=== PATIENT | female | born 1975 | race African-American/Black ===

== ENCOUNTER 2016-12-15 15:02 | Emergency (ER) | payer MEDICARE ==
[2016-12-15 16:08] LABS: BASOPHILS 0 % (0.0-2.0); EOSINOPHILS 0.3 % (0-7); HEMATOCRIT 35.9 % (36.0-48.0); HEMOGLOBIN 11.5 g/dL (12-16); IMMATURE GRANULOCYTES 0.4 % (0-5); LYMPHOCYTES 11.1 % (15-50); MCH 28.3 pg (26.0-34.0); MCV 88.2 fL (80.0-100.0); MEAN PLATELET VOLUME 9.6 fL (7.4-10.4); MONOCYTES 8.1 % (2-11); NEUTROPHILS 80.1 % (40-80); PLATELET COUNT 257 10x3/uL (130-400); RBC 4.07 10x6/uL (4.00-5.40); WBC 7.7 10x3/uL (4.8-10.8)
[2016-12-15 16:17] LABS: ALBUMIN 3.8 g/dL (3.4-5.0); ALKALINE PHOSPHATASE 67 U/L (46-116); ALT (SGPT) 33 U/L (10-68); AMYLASE - SERUM 76 U/L (25-115); BILIRUBIN - TOTAL 0.31 mg/dL (0.2-1.3); CALC OSMOLALITY 276 mosm/kg (275-300); CALCIUM 9.1 mg/dL (8.5-10.1); CARBON DIOXIDE 23.6 mmol/L (21.0-32.0); CHLORIDE - SERUM 101 mmol/L (98-107); CREATININE - SERUM 0.6 mg/dL (0.6-1.3); GLUCOSE 126 mg/dL (74-106); LIPASE 73 U/L (73-393); POTASSIUM - SERUM 3.9 mmol/L (3.5-5.1); PROTEIN - SERUM 8.1 g/dL (6.4-8.2); SODIUM 138 mmol/L (136-145); UREA NITROGEN 11 mg/dL (7-18); eGFR NON AFRICAN AMERICAN > 90 mL/min (90-120)
[2016-12-15 17:18] LABS: APPEARANCE CLEAR (CLEAR); BILIRUBIN NEGATIVE (NEGATIVE); COLOR YELLOW (YELLOW); GLUCOSE NEGATIVE (NEGATIVE); KETONE MODERATE mg/dL (NEGATIVE); LEUKOCYTE ESTERASE TRACE (NEGATIVE); NITRITE NEGATIVE (NEGATIVE); PROTEIN TRACE mg/dL (NEGATIVE); UROBILINOGEN NORMAL (NORMAL)
[2016-12-15 17:19] LABS: BACTERIA MODERATE /hpf (NONE SEEN); RED CELLS - URINE 0-5 /hpf (0-5); WHITE CELLS - URINE 0-5 /hpf (0-5)
== END 2016-12-15 18:31 | disposition home or self-care (01) ==
LOC: D.ER 15:02
PROVIDERS: Emergency Medicine
DX: K29.00 Acute gastritis without bleeding (principal)

== ENCOUNTER 2017-02-20 12:05 | Emergency (ER) | payer MEDICARE ==
[2017-02-20 16:37] LABS: APPEARANCE CLEAR (CLEAR); BILIRUBIN NEGATIVE (NEGATIVE); COLOR DK YELLOW (YELLOW); GLUCOSE NEGATIVE (NEGATIVE); KETONE MODERATE mg/dL (NEGATIVE); LEUKOCYTE ESTERASE NEGATIVE (NEGATIVE); NITRITE NEGATIVE (NEGATIVE); PROTEIN NEGATIVE (NEGATIVE); SPECIFIC GRAVITY 1.015 (1.005-1.020); UROBILINOGEN NORMAL (NORMAL)
[2017-02-20 17:44] LABS: BASOPHILS 0.2 % (0.0-2.0); EOSINOPHILS 0.5 % (0-7); HEMATOCRIT 36.6 % (36.0-48.0); HEMOGLOBIN 11.9 g/dL (12-16); MCH 26.6 pg (26.0-34.0); MCHC 32.5 g/dL (31.0-37.0); MCV 81.9 fL (80.0-100.0); MONOCYTES 5.1 % (2-11); NEUTROPHILS 62.2 % (40-80); PLATELET COUNT 245 10x3/uL (130-400); RBC 4.47 10x6/uL (4.00-5.40); RDW 15.8 % (11.5-14.5); WBC 4.3 10x3/uL (4.8-10.8)
[2017-02-20 17:47] LABS: ALBUMIN 2.8 g/dL (3.4-5.0); ALKALINE PHOSPHATASE 90 U/L (46-116); ALT (SGPT) 98 U/L (10-68); BILIRUBIN - TOTAL 0.44 mg/dL (0.2-1.3); CALC OSMOLALITY 277 mosm/kg (275-300); CALCIUM 7.6 mg/dL (8.5-10.1); CARBON DIOXIDE 25.7 mmol/L (21.0-32.0); CHLORIDE - SERUM 108 mmol/L (98-107); CREATININE - SERUM 0.5 mg/dL (0.6-1.3); GLUCOSE 93 mg/dL (74-106); POTASSIUM - SERUM 3.5 mmol/L (3.5-5.1); PROTEIN - SERUM 6.2 g/dL (6.4-8.2); SODIUM 141 mmol/L (136-145); UREA NITROGEN 5 mg/dL (7-18); eGFR NON AFRICAN AMERICAN > 90 mL/min (90-120)
[2017-02-20 17:51] LABS: THYROID STIMULATING HORMONE 0.79 uIU/mL (0.36-3.74)
== END 2017-02-20 18:14 | disposition home or self-care (01) ==
LOC: D.ER 12:05
PROVIDERS: Emergency Medicine
DX: E86.0 Dehydration (principal); I95.9 Hypotension, unspecified; R53.1 Weakness; F17.200 Nicotine dependence, unspecified, uncomplicated; R00.1 Bradycardia, unspecified

== ENCOUNTER 2017-03-07 12:13 | Emergency (ER) | payer MEDICARE ==
[2017-03-07 14:06] LABS: APPEARANCE TURBID (CLEAR); COLOR RED (YELLOW); GLUCOSE NEGATIVE (NEGATIVE); KETONE NEGATIVE (NEGATIVE); LEUKOCYTE ESTERASE 2+ (NEGATIVE); NITRITE NEGATIVE (NEGATIVE); PROTEIN 3+ mg/dL (NEGATIVE); SPECIFIC GRAVITY 1.005 (1.005-1.020); UROBILINOGEN NORMAL (NORMAL)
[2017-03-07 14:07] LABS: BACTERIA FEW /hpf (NONE SEEN); BILIRUBIN NEGATIVE (NEGATIVE); EPITHELIAL CELLS OCC /hpf (0-5); MUCUS <1+ /lpf (NONE SEEN); RED CELLS - URINE >50 /hpf (0-5); WHITE CELLS - URINE 0-5 /hpf (0-5)
[2017-03-07 15:29] LABS: BASOPHILS 0.2 % (0.0-2.0); EOSINOPHILS 0 % (0-7); HEMATOCRIT 33.8 % (36.0-48.0); HEMOGLOBIN 11.2 g/dL (12-16); IMMATURE GRANULOCYTES 0.5 % (0-5); LYMPHOCYTES 14.9 % (15-50); MCH 27.1 pg (26.0-34.0); MCHC 33.1 g/dL (31.0-37.0); MCV 81.8 fL (80.0-100.0); MONOCYTES 6.1 % (2-11); NEUTROPHILS 78.3 % (40-80); RBC 4.13 10x6/uL (4.00-5.40); RDW 17.8 % (11.5-14.5); WBC 5.7 10x3/uL (4.8-10.8)
[2017-03-07 15:31] LABS: PLATELET COUNT 496 10x3/uL (130-400)
[2017-03-07 15:50] LABS: ALBUMIN 3.1 g/dL (3.4-5.0); ALKALINE PHOSPHATASE 129 U/L (46-116); ALT (SGPT) 101 U/L (10-68); BILIRUBIN - TOTAL 0.38 mg/dL (0.2-1.3); CALC OSMOLALITY 279 mosm/kg (275-300); CALCIUM 8.4 mg/dL (8.5-10.1); CARBON DIOXIDE 23.6 mmol/L (21.0-32.0); CHLORIDE - SERUM 105 mmol/L (98-107); CREATININE - SERUM 0.6 mg/dL (0.6-1.3); GLUCOSE 125 mg/dL (74-106); PROTEIN - SERUM 6.8 g/dL (6.4-8.2); SODIUM 141 mmol/L (136-145); UREA NITROGEN 8 mg/dL (7-18); eGFR NON AFRICAN AMERICAN > 90 mL/min (90-120)
== END 2017-03-07 16:54 | disposition home or self-care (01) ==
LOC: D.ER 12:13
PROVIDERS: Emergency Medicine
DX: N39.0 Urinary tract infection, site not specified (principal); M54.5 Low back pain; I95.9 Hypotension, unspecified; F17.200 Nicotine dependence, unspecified, uncomplicated

== ENCOUNTER 2017-03-10 08:05 | Emergency (ER) | payer MEDICARE ==
--- NOTE | ~2017-03-10 | PN ---
PATIENT:LISSETTE GONZALES MEDICAL RECORD: [id number] LOCATION:D.ER ADMISSION DATE: 03/10/17 PROGRESS NOTE DATE OF SERVICE: 03/10/2017 SUBJECTIVE: I was asked to see Ms. Gonzales in consultation. She is being admitted by Dr. Padron. I have discussed this case with Dr. Castro. I have personally reviewed the CT as well as the barium enema images. The patient has an intussusception. Almost all of her large bowel was intussusception as well as some of her small bowel. 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 Perhaps to the enteroenterostomy is the lead point for this intussusception. The patient would like to go [place] to have any type of operative intervention, which I think is going to be necessary in the very near future. She wants to see Dr. Arvizu, bariatric surgeon in [place]. I have discussed this with Dr. Biggs, who is going to try to effect a transfer to [place] for the patient to see Dr. Arvizu. TRANSINT:[id number] Voice Confirmation ID: [id number] DOCUMENT ID: [id number] TRAM SALAS MD CC: [id number] DICTATION DATE: 03/10/17 1437 PROFESSIONAL SOCCER PLAYER: 03/11/17 0304 [facility] ER 03/10/17 [id number] [place] [address]
[2017-03-10 08:47] LABS: APPEARANCE HAZY (CLEAR); BACTERIA MODERATE /hpf (NONE SEEN); BILIRUBIN NEGATIVE (NEGATIVE); COLOR DK YELLOW (YELLOW); GLUCOSE NEGATIVE (NEGATIVE); KETONE MODERATE mg/dL (NEGATIVE); LEUKOCYTE ESTERASE TRACE (NEGATIVE); MUCUS >1+ /lpf (NONE SEEN); NITRITE NEGATIVE (NEGATIVE); PROTEIN TRACE mg/dL (NEGATIVE); RED CELLS - URINE RARE /hpf (0-5); UROBILINOGEN NORMAL (NORMAL); WHITE CELLS - URINE 0-5 /hpf (0-5)
[2017-03-10 08:50] LABS: AMORPHOUS SEDIMENT <1+ /lpf (NONE SEEN)
[2017-03-10 09:19] LABS: BASOPHILS 0 % (0.0-2.0); EOSINOPHILS 0.3 % (0-7); HEMOGLOBIN 11.2 g/dL (12-16); IMMATURE GRANULOCYTES 0.4 % (0-5); LYMPHOCYTES 8.8 % (15-50); MCH 26.9 pg (26.0-34.0); MCHC 32.9 g/dL (31.0-37.0); MCV 81.7 fL (80.0-100.0); MEAN PLATELET VOLUME 8.7 fL (7.4-10.4); MONOCYTES 7.4 % (2-11); NEUTROPHILS 83.1 % (40-80); PLATELET COUNT 429 10x3/uL (130-400); RBC 4.16 10x6/uL (4.00-5.40); RDW 18.2 % (11.5-14.5); WBC 9.5 10x3/uL (4.8-10.8)
[2017-03-10 09:56] LABS: ALBUMIN 2.4 g/dL (3.4-5.0); ALKALINE PHOSPHATASE 130 U/L (46-116); ALT (SGPT) 66 U/L (10-68); BILIRUBIN - TOTAL 0.55 mg/dL (0.2-1.3); CALC OSMOLALITY 277 mosm/kg (275-300); CALCIUM 7.9 mg/dL (8.5-10.1); CARBON DIOXIDE 30.3 mmol/L (21.0-32.0); CHLORIDE - SERUM 104 mmol/L (98-107); CREATININE - SERUM 0.6 mg/dL (0.6-1.3); GLUCOSE 120 mg/dL (74-106); PROTEIN - SERUM 6.2 g/dL (6.4-8.2); SODIUM 140 mmol/L (136-145); UREA NITROGEN 8 mg/dL (7-18); eGFR NON AFRICAN AMERICAN > 90 mL/min (90-120)
[2017-03-10 09:58] LABS: POTASSIUM - SERUM 2.9 mmol/L (3.5-5.1)
== END 2017-03-10 17:10 | disposition other institution (70) ==
LOC: D.ER 08:05
PROVIDERS: Family Medicine
DX: R10.9 Unspecified abdominal pain (principal); I95.9 Hypotension, unspecified

== ENCOUNTER 2017-08-28 20:00 | Observation (INO) | payer MEDICARE ==
[~2017-08-28] VITALS: Ht 167.6 cm; Wt 52.2 kg
[2017-08-28 20:57] LABS: BASOPHILS 0.2 % (0-2); EOSINOPHILS 0.2 % (0-7); HEMATOCRIT 26.5 % (36.0-48.0); HEMOGLOBIN 8.4 g/dL (12-16); IMMATURE GRANULOCYTES 0.2 % (0-5); LYMPHOCYTES 17.7 % (15-50); MCH 31.8 pg (26.0-34.0); MCHC 31.7 g/dL (31.0-37.0); MCV 100.4 fL (80.0-100.0); MONOCYTES 6.9 % (2-11); NEUTROPHILS 74.8 % (40-80); PLATELET COUNT 303 10x3/uL (130-400); RBC 2.64 10x6/uL (4.00-5.40); RDW 14.3 % (11.5-14.5); WBC 4.8 10x3/uL (4.8-10.8)
[2017-08-28 21:05] LABS: CALC OSMOLALITY 274 mosm/kg (275-300); CALCIUM 8.2 mg/dL (8.5-10.1); CARBON DIOXIDE 28.4 mmol/L (21.0-32.0); CHLORIDE - SERUM 106 mmol/L (98-107); CREATININE - SERUM 0.4 mg/dL (0.6-1.3); GLUCOSE 78 mg/dL (74-106); POTASSIUM - SERUM 3.8 mmol/L (3.5-5.1); SODIUM 138 mmol/L (136-145); UREA NITROGEN 13 mg/dL (7-18); eGFR NON AFRICAN AMERICAN > 90 mL/min (90-120)
[2017-08-29] MEDS ORDERED: LYRICA50 MG PO (02:08)
[2017-08-29] MEDS ORDERED: AMBIEN10 MG PO (02:10)
[2017-08-29] MEDS ORDERED: NORCO 7.5/325 T1 TA1 PO (02:11)
[2017-08-29 03:01] VITALS: BP 107/59; BMI 18.6
--- NOTE | 2017-08-29 03:14 | NUR ---
RECEIVED PT TO FLOOR FROM ER VIA WHEELCHAIR. PT AMBULATORY. VITAL SIGNS STABLE. SMALL AMOUNT YELLOW FLUID DRAINING FROM PEG TUBE SITE. PEG TUBE IS CLAMPED. ASSESSMENT COMPELTE PER FLOW-SHEET. REVIEWED HOME MEDS. PT UNABLE TO RECALL ALL MEDS. DAUGHTER TO BRING LIST LATE. REVIEWED HISTORY. PLACED SCD'S ON. PT C/O ABDOMINAL PAIN 07/08. WROTE TIME FOR NEXT PAIN MED ON BOARD. PLACED WARM BLANKET ON PT. PT IS NPO. NO OTHER NEEDS. WILL CONTINUE TO MONITOR.
[2017-08-29 04:00] VITALS: BP 102/56
--- NOTE | 2017-08-29 06:55 | NUR ---
REPORT RECIEVED, ASSUMED CARE OF PT. RESTING IN BED, EASILY AROUSED. R HAND IV INFUSING FLUIDS ORDERED, DRSG C/D/I. NO NEEDS VOICED, BED IN LOWEST POSITION, SIDE RAILS UP X 2, CALL LIGHT WITHIN REACH.
[2017-08-29 09:20] VITALS: BP 101/62
[2017-08-29 12:31] VITALS: BP 110/74
[2017-08-29 14:19] LABS: BILIRUBIN - DIRECT 0.17 mg/dL (0.00-0.30); BILIRUBIN - INDIRECT 0.06 mg/dL (0.00-1.00); BILIRUBIN - TOTAL 0.23 mg/dL (0.2-1.3); PRE-ALBUMIN 9.2 mg/dL (18.0-35.7); PROTEIN - SERUM 5.2 g/dL (6.4-8.2)
[2017-08-29 16:05] VITALS: BP 108/75
[2017-08-29 21:27] VITALS: BP 99/62
--- NOTE | 2017-08-29 21:28 | NUR ---
REC'D LYING IN BED. ALERT AND ORIENTED X4. REPORTED PAIN 8/10. WILL ADMIN PAIN MEDS PRESCRIBED. INSTRUCTED TO CALL IF NEEDED ANYTHING, VERBLAIZED UNDERSTANDING. NO DISTRESS NOTED. IS WANTING SOME 4X4S FOR ABDOMEN. BED LOW, LOCKED, CALL LIGHT IN REACH. WILL CONT TO MONITOR.
[2017-08-30] VITALS: BP 103/67
[2017-08-30 04:00] VITALS: BP 119/80
--- NOTE | 2017-08-30 04:40 | NUR ---
PT SITTING IN BED WATCHING TV. JUST RECEIVED PAIN MEDS. NO OTHER NEEDS. CONTINUE FINANCE SPECIALIST'S PLAN OF CARE.
[2017-08-30 05:44] LABS: BASOPHILS 0.3 % (0-2); EOSINOPHILS 0.7 % (0-7); HEMOGLOBIN 9.3 g/dL (12-16); LYMPHOCYTES 36.6 % (15-50); MCH 31.7 pg (26.0-34.0); MCHC 32.1 g/dL (31.0-37.0); MEAN PLATELET VOLUME 9.6 fL (7.4-10.4); MONOCYTES 7.2 % (2-11); NEUTROPHILS 55.2 % (40-80); PLATELET COUNT 308 10x3/uL (130-400); RBC 2.93 10x6/uL (4.00-5.40); RDW 14.5 % (11.5-14.5)
[2017-08-30 05:49] LABS: WBC 2.9 10x3/uL (4.8-10.8)
[2017-08-30 05:58] LABS: ALBUMIN 2.3 g/dL (3.4-5.0); ALKALINE PHOSPHATASE 138 U/L (46-116); ALT (SGPT) 106 U/L (10-68); CALCIUM 8.2 mg/dL (8.5-10.1); CARBON DIOXIDE 24.1 mmol/L (21.0-32.0); CHLORIDE - SERUM 109 mmol/L (98-107); CREATININE - SERUM 0.5 mg/dL (0.6-1.3); INR 1.19 (0.85-1.17); POTASSIUM - SERUM 3.4 mmol/L (3.5-5.1); PROTEIN - SERUM 6.4 g/dL (6.4-8.2); SODIUM 140 mmol/L (136-145); eGFR NON AFRICAN AMERICAN > 90 mL/min (90-120)
[2017-08-30 06:03] LABS: CALC OSMOLALITY 275 mosm/kg (275-300); GLUCOSE 61 mg/dL (74-106); UREA NITROGEN 9 mg/dL (7-18)
--- NOTE | 2017-08-30 07:45 | NUR ---
PT AOX4 RESP EVEN AND NONLABORED PT DENIES NEEDS AT THIS TIME IV TO RIGHT HAND PATENT AND INTACT AT THIS TIME SRX2 BED AT LOWEST SETTING CALL LIGHT WITHIN REACH WILL CONTINUE TO MONITOR
[2017-08-30 08:35] VITALS: BP 105/63
[2017-08-30 12:29] VITALS: BP 106/68
[2017-08-30 15:18] VITALS: Ht 167.6 cm; Wt 52.2 kg
[2017-08-30 20:00] VITALS: BP 108/70
--- NOTE | 2017-08-30 22:29 | NUR ---
PATIENT REQUESTED HER PEG TUBE DRESSING BE CHANGED. REMOVED THE DRESSING. THERE IS LIGHT YELLOW DRAINAGE, A THIN LAYER ON THE PEG TUBE WHERE IT ENTERS THE ABDOMEN. THE PEG TUBE IS NOT STITCHED IN, THERE IS THREAD AROUND THE TUBE, ABOUT 6CM AWAY FROM WHERE THE PEG TUBE ENTERS THE ABDOMEN. PATIENT STATED "THE ER DOCTOR LOOKED AT IT AND HE SAID IT WAS IN THERE. I WENT TO A GI DOCTOR AT HIS CLINIC AND HE LOOKED AT IT AND PULLED IT OUT LIKE THAT AND HE SAID IT WAS IN. BUT IT IS VERY TENDER UNDER THERE. I DO NOT THINK IT IS IN." ENCOURAGED PATIENT TO SHOW THE DOCTOR WHEN SHE SEES THE DOCTOR TOMORROW.
[2017-08-30 22:40] LABS: MACROPHAGES BF 5 %; NEUT - BF 90 %
[2017-08-31] VITALS: BP 98/69
--- NOTE | 2017-08-31 02:31 | NUR ---
PATIENT RATED HER PAIN 'BETTER' RATED A 7/10.
[2017-08-31 05:39] VITALS: BP 100/66
[2017-08-31 06:27] LABS: BASOPHILS 0.3 % (0-2); HEMATOCRIT 23.6 % (36.0-48.0); HEMOGLOBIN 7.6 g/dL (12-16); LYMPHOCYTES 28.2 % (15-50); MCH 31.7 pg (26.0-34.0); MCHC 32.2 g/dL (31.0-37.0); MCV 98.3 fL (80.0-100.0); MEAN PLATELET VOLUME 8.8 fL (7.4-10.4); MONOCYTES 9.8 % (2-11); NEUTROPHILS 60.7 % (40-80); PLATELET COUNT 250 10x3/uL (130-400); RDW 14.3 % (11.5-14.5); WBC 3.1 10x3/uL (4.8-10.8)
[2017-08-31 06:57] LABS: ALKALINE PHOSPHATASE 127 U/L (46-116); ALT (SGPT) 107 U/L (10-68); BILIRUBIN - TOTAL 0.17 mg/dL (0.2-1.3); CALCIUM 7.4 mg/dL (8.5-10.1); CARBON DIOXIDE 23.3 mmol/L (21.0-32.0); CHLORIDE - SERUM 110 mmol/L (98-107); SODIUM 139 mmol/L (136-145)
[2017-08-31 06:59] LABS: ALBUMIN 1.7 g/dL (3.4-5.0); CALC OSMOLALITY 273 mosm/kg (275-300); CREATININE - SERUM 0.3 mg/dL (0.6-1.3); GLUCOSE 67 mg/dL (74-106); UREA NITROGEN 6 mg/dL (7-18); eGFR NON AFRICAN AMERICAN > 90 mL/min (90-120)
--- NOTE | 2017-08-31 08:01 | NUR ---
Patient Name: LISSETTE GONZALES Admission Status: ER Accout number: [id number] Admission Date: 08-29-2017 : 1975 Admission Diagnosis: Attending: TRI, Current LOS: 2 Anticipated DC Date: 08-31-2017 Planned Disposition: Home with Home Health Primary Insurance: [employer] PPO MCR [employer] Discharge Planning Comments: CM MET WITH PATIENT REGARDING D/C NEEDS AND PLANS. PATIENT STATED SHE LIVES WITH HER FAMILY AND THEY WILL DRIVE HER HOME AT DISCHARGE. PATIENT STATED THERE ARE ABOUT 20 STEPS TO ENTER HER HOME AND NO STAIRS INSIDE. PATIENT STATES SHE IS INDEPENDENT WITH HER CARE AND HAS A WALKER AT HOME. PATIENT DOES HAVE A PEG TUBE. PATIENTS PCP IS DR. DONAHUE AND PH[facility]ACY IS [facility]. ON [address] [facility]. CM WILL CONTINUE TO FOLLOW PATIENT WITH D/C NEEDS AND PLANS. [facility] [address]- [phone] ROGERS GONZALES ([facility] [place] [phone] Solar Installation Supervisor: Diana Marin Is the patient Alert and Oriented? Yes 0 * How many steps to enter\exit or inside your home? 20 W/RAILS 0 * PCP DR. DONAHUE 0 * Pharmacy [facility]. [facility] [address] * Preadmission Environment Home with Family 0 * ADLs Independent 0 * Equipment Walker 0 * List name and contact numbers for known caregivers / representatives who currently or will assist patient after discharge: ROGERS GONZALES ([facility] [place]) [phone] 0 * Community resources currently utilized Home Health 0 * Please name any agencies selected above. [facility] 0 * Additional services required to return to the preadmission environment? Yes 0 * Can the patient safely return to the preadmission environment? Yes 0 * Has this patient been hospitalized within the prior 30 days at any hospital? No 0 Grand Total: 0
[2017-08-31 08:52] VITALS: BP 117/80
[2017-08-31 09:17] LABS: FOLATE (FOLIC ACID) - SERUM 19.6 ng/mL (>3.0)
--- NOTE | 2017-08-31 10:38 | NUR ---
PATIENT IS DISCHARGING HOME TODAY/FAMILY OR FRIEND DRIVING HER. PATIENT IS CURRENT WITH [facility] AND THEY HAVE BEEN NOTIFIED. PATIENT HAD NO OTHER NEEDS FOR DISCHARGE. IMM SERVED
[2017-08-31] MEDS ORDERED: NORCO 7.5/325 T1 TA1 PO (10:40)
--- NOTE | 2017-08-31 12:35 | NUR ---
IV DISCONTINUED WITH CATHETER INTACT AT THIS TIME PT GIVEN DISCHARGE INSTRUCTIONS AT THIS TIME PT TAKEN VIA WHEELCHAIR TO PRIVATE VEHICLE AT THIS TIME
[2017-09-09 16:15] LABS: AEROBE ID Final report (())
== END 2017-08-31 12:38 | disposition home or self-care (01) ==
LOC: D.ER 20:00 → D.MS 08-29 01:23 → OBSVTIME 08-29 01:23 → D.M3 08-29 04:23 → D.MS 08-29 04:25
PROVIDERS: Family Medicine; General Practice; Nurse Practitioner Acute Care; Radiology Diagnostic Radiology; Surgery; ADMIT Family Medicine
DX: K94.23 Gastrostomy malfunction (principal); E43 Unspecified severe protein-calorie malnutrition; R18.8 Other ascites

== ENCOUNTER 2017-09-05 13:29 | Emergency (ER) | payer MEDICARE ==
[2017-08-30 15:18] VITALS: BMI 18.5
[~2017-09-05 13:29] MED LIST: AMBIEN10 MG PO; LYRICA50 MG PO; NORCO 7.5/325 T1 TA1 PO
[2017-09-05 15:12] LABS: CALC OSMOLALITY 278 mosm/kg (275-300); CALCIUM 7.8 mg/dL (8.5-10.1); CARBON DIOXIDE 25.5 mmol/L (21.0-32.0); CHLORIDE - SERUM 104 mmol/L (98-107); CREATININE - SERUM 0.4 mg/dL (0.6-1.3); POTASSIUM - SERUM 3.9 mmol/L (3.5-5.1); SODIUM 139 mmol/L (136-145); UREA NITROGEN 10 mg/dL (7-18); eGFR NON AFRICAN AMERICAN > 90 mL/min (90-120)
[2017-09-05 15:26] LABS: GLUCOSE 135 mg/dL (74-106)
[2017-09-05 15:28] LABS: BASOPHILS 0.2 % (0-2); EOSINOPHILS 0.2 % (0-7); HEMATOCRIT 26.7 % (36.0-48.0); HEMOGLOBIN 8.9 g/dL (12-16); IMMATURE GRANULOCYTES 0.3 % (0-5); LYMPHOCYTES 12.7 % (15-50); MCH 31.3 pg (26.0-34.0); MCHC 33.3 g/dL (31.0-37.0); MEAN PLATELET VOLUME 9.8 fL (7.4-10.4); MONOCYTES 9.3 % (2-11); NEUTROPHILS 77.3 % (40-80); PLATELET COUNT 417 10x3/uL (130-400); RBC 2.84 10x6/uL (4.00-5.40); RDW 13.6 % (11.5-14.5); WBC 5.8 10x3/uL (4.8-10.8)
== END 2017-09-05 17:28 | disposition home or self-care (01) ==
LOC: D.ER 13:29
PROVIDERS: Nurse Practitioner Acute Care
DX: R10.12 Left upper quadrant pain (principal); F17.200 Nicotine dependence, unspecified, uncomplicated

== ENCOUNTER 2017-09-06 12:54 | Emergency (ER) | payer MEDICARE ==
[2017-08-30 15:18] VITALS: BMI 18.5
[2017-09-06 13:30] LABS: BASOPHILS 0.2 % (0-2); EOSINOPHILS 0.2 % (0-7); HEMATOCRIT 28.3 % (36.0-48.0); HEMOGLOBIN 9.1 g/dL (12-16); IMMATURE GRANULOCYTES 0.2 % (0-5); LYMPHOCYTES 13.3 % (15-50); MCH 31.2 pg (26.0-34.0); MCHC 32.2 g/dL (31.0-37.0); MEAN PLATELET VOLUME 9.1 fL (7.4-10.4); MONOCYTES 8.5 % (2-11); NEUTROPHILS 77.6 % (40-80); PLATELET COUNT 372 10x3/uL (130-400); RBC 2.92 10x6/uL (4.00-5.40); RDW 14.1 % (11.5-14.5); WBC 5.2 10x3/uL (4.8-10.8)
[2017-09-06 13:31] LABS: MCV 96.9 fL (80.0-100.0)
== END 2017-09-06 16:22 | disposition home or self-care (01) ==
LOC: D.ER 12:54
PROVIDERS: Emergency Medicine
DX: I95.89 Other hypotension (principal); F17.200 Nicotine dependence, unspecified, uncomplicated

== ENCOUNTER 2017-09-20 13:06 | Emergency (ER) | payer MEDICARE ==
[2017-08-30 15:18] VITALS: BMI 18.5
[2017-09-20 14:31] LABS: BASOPHILS 0 % (0-2); EOSINOPHILS 0.3 % (0-7); HEMATOCRIT 29.3 % (36.0-48.0); HEMOGLOBIN 9.8 g/dL (12-16); IMMATURE GRANULOCYTES 0.3 % (0-5); LYMPHOCYTES 22.3 % (15-50); MCH 31.4 pg (26.0-34.0); MCHC 33.4 g/dL (31.0-37.0); MCV 93.9 fL (80.0-100.0); MEAN PLATELET VOLUME 8.8 fL (7.4-10.4); MONOCYTES 7.1 % (2-11); RBC 3.12 10x6/uL (4.00-5.40); RDW 15.7 % (11.5-14.5); WBC 3.8 10x3/uL (4.8-10.8)
[2017-09-20 14:32] LABS: PLATELET COUNT 278 10x3/uL (130-400)
[2017-09-20 14:36] LABS: ALBUMIN 1.9 g/dL (3.4-5.0); ALKALINE PHOSPHATASE 194 U/L (46-116); ALT (SGPT) 99 U/L (10-68); BILIRUBIN - TOTAL 0.29 mg/dL (0.2-1.3); CALC OSMOLALITY 284 mosm/kg (275-300); CALCIUM 7.8 mg/dL (8.5-10.1); CARBON DIOXIDE 26.4 mmol/L (21.0-32.0); CHLORIDE - SERUM 111 mmol/L (98-107); CREATININE - SERUM 0.6 mg/dL (0.6-1.3); GLUCOSE 121 mg/dL (74-106); POTASSIUM - SERUM 3.1 mmol/L (3.5-5.1); PROTEIN - SERUM 5.9 g/dL (6.4-8.2); SODIUM 143 mmol/L (136-145); UREA NITROGEN 11 mg/dL (7-18); eGFR NON AFRICAN AMERICAN > 90 mL/min (90-120)
== END 2017-09-20 17:30 | disposition home or self-care (01) ==
LOC: D.ER 13:06
PROVIDERS: Emergency Medicine
DX: R53.1 Weakness (principal); E87.6 Hypokalemia

== ENCOUNTER 2017-09-30 13:22 | Observation (INO) | payer MEDICARE ==
[2017-09-30] MEDS ORDERED: MEGACE40 MG PO (14:07)
[2017-09-30] MEDS ORDERED: KLOR-CON M1515 MEQ PO (14:07)
[2017-09-30] MEDS ORDERED: CIPRO500 MG PO (14:08)
[2017-09-30] MEDS ORDERED: REGLAN10 MG PO (14:08)
[2017-09-30] MEDS ORDERED: AMPICILLIN TRI500 MG PO (14:08)
[2017-09-30] MEDS ORDERED: PEPCID AC20 MG PO (14:08)
[2017-09-30 15:13] VITALS: BP 102/78; BMI 19.6
--- NOTE | 2017-09-30 15:15 | NUR ---
TAKEN TO GI LAB AT THIS TIME. WILL MONITOR PT WHEN SHE RETURNS.
[2017-09-30 15:29] LABS: APPEARANCE CLEAR (CLEAR); COLOR YELLOW (YELLOW); NITRITE NEGATIVE (NEGATIVE); SPECIFIC GRAVITY 1.015 (1.005-1.020)
[2017-09-30 15:30] LABS: BILIRUBIN NEGATIVE (NEGATIVE); GLUCOSE NEGATIVE (NEGATIVE); HCG URINE NEGATIVE (NEGATIVE); KETONE NEGATIVE (NEGATIVE); PROTEIN NEGATIVE (NEGATIVE); UROBILINOGEN NORMAL (NORMAL)
--- NOTE | 2017-09-30 15:33 | NUR ---
BALLOON DILATION DONE TO 14.5CM.
--- NOTE | 2017-09-30 16:00 | NUR ---
RECEIVED TO ROOM 2216. AWAKE AND ALERT. PROVIDED PT WITH SANDWICH TRAY, PUDDING, JELLO AND ICE WATER. DENIES NEEDS AT THIS TIME. FAMILY AT BEDSIDE AND CALL CELENA AHUJA.
[2017-09-30 17:43] LABS: BASOPHILS 0.4 % (0-2); EOSINOPHILS 0.2 % (0-7); HEMATOCRIT 30.9 % (36.0-48.0); HEMOGLOBIN 10.2 g/dL (12-16); IMMATURE GRANULOCYTES 0.2 % (0-5); LYMPHOCYTES 27.4 % (15-50); MCH 31.5 pg (26.0-34.0); MCV 95.4 fL (80.0-100.0); MEAN PLATELET VOLUME 9.9 fL (7.4-10.4); MONOCYTES 9.5 % (2-11); NEUTROPHILS 62.3 % (40-80); PLATELET COUNT 280 10x3/uL (130-400); RBC 3.24 10x6/uL (4.00-5.40); RDW 16.2 % (11.5-14.5); WBC 4.5 10x3/uL (4.8-10.8)
[2017-09-30 18:53] LABS: % SATURATION 21 % (15-55); IRON 33 ug/dl (35-150); TOTAL IRON BIND CAPACITY 151 ug/dl (260-445); UNSAT IRON BIND CAPACITY 118 ug/dl (150-375)
[2017-09-30 18:54] LABS: ALBUMIN 2.6 g/dL (3.4-5.0); ALKALINE PHOSPHATASE 139 U/L (46-116); ALT (SGPT) 93 U/L (10-68); BILIRUBIN - TOTAL 0.24 mg/dL (0.2-1.3); CALC OSMOLALITY 281 mosm/kg (275-300); CALCIUM 8.4 mg/dL (8.5-10.1); CARBON DIOXIDE 24.4 mmol/L (21.0-32.0); CHLORIDE - SERUM 107 mmol/L (98-107); CREATININE - SERUM 0.4 mg/dL (0.6-1.3); GLUCOSE 143 mg/dL (74-106); MAGNESIUM - SERUM 2.1 mg/dL (1.8-2.4); PHOSPHOROUS 2.4 mg/dL (2.5-4.9); POTASSIUM - SERUM 3.5 mmol/L (3.5-5.1); SODIUM 141 mmol/L (136-145); UREA NITROGEN 10 mg/dL (7-18); eGFR NON AFRICAN AMERICAN > 90 mL/min (90-120)
[2017-09-30 18:55] LABS: PRE-ALBUMIN 19.7 mg/dL (18.0-35.7)
[2017-09-30 20:00] VITALS: BP 117/78
[2017-10-01] VITALS: BP 115/75
[2017-10-01 05:26] VITALS: BP 117/72
[2017-10-01 06:33] LABS: BASOPHILS 0.5 % (0-2); EOSINOPHILS 0.2 % (0-7); HEMATOCRIT 30.2 % (36.0-48.0); HEMOGLOBIN 9.7 g/dL (12-16); IMMATURE GRANULOCYTES 0.2 % (0-5); LYMPHOCYTES 16.9 % (15-50); MCH 31.1 pg (26.0-34.0); MCHC 32.1 g/dL (31.0-37.0); MCV 96.8 fL (80.0-100.0); MEAN PLATELET VOLUME 9.4 fL (7.4-10.4); NEUTROPHILS 78.2 % (40-80); PLATELET COUNT 295 10x3/uL (130-400); RBC 3.12 10x6/uL (4.00-5.40); RDW 16.4 % (11.5-14.5); WBC 4.3 10x3/uL (4.8-10.8)
[2017-10-01 07:00] LABS: ALBUMIN 2.3 g/dL (3.4-5.0); ALKALINE PHOSPHATASE 125 U/L (46-116); ALT (SGPT) 82 U/L (10-68); BILIRUBIN - TOTAL 0.23 mg/dL (0.2-1.3); CALC OSMOLALITY 275 mosm/kg (275-300); CALCIUM 7.9 mg/dL (8.5-10.1); CARBON DIOXIDE 21.3 mmol/L (21.0-32.0); CHLORIDE - SERUM 111 mmol/L (98-107); CREATININE - SERUM 0.4 mg/dL (0.6-1.3); POTASSIUM - SERUM 4.4 mmol/L (3.5-5.1); PROTEIN - SERUM 6.1 g/dL (6.4-8.2); SODIUM 140 mmol/L (136-145); UREA NITROGEN 10 mg/dL (7-18); eGFR NON AFRICAN AMERICAN > 90 mL/min (90-120)
[2017-10-01] MEDS ORDERED: LOMOTIL TABLET1 TAB PO (07:10)
[2017-10-01 07:14] LABS: GLUCOSE 62 mg/dL (74-106)
[2017-10-01 08:38] VITALS: BP 104/61
--- NOTE | 2017-10-01 08:46 | NUR ---
SCHEDULED MEDICATIONS ADMINISTERED AT THIS TIME PER PEG TUBE. PT EATING BREAKFAST WITHOUT DIFFICULTY. IV TO RIGHT HAND PATENT. CALL LIGHT IN REACH, WILL CONTINUE WITH PLAN OF CARE.
[2017-10-01 12:52] VITALS: BMI 19.6
[2017-10-01 14:15] VITALS: BP 111/74
--- NOTE | 2017-10-01 15:14 | NUR ---
5845 CM RECEIVED A TELEPHONE CALL FROM [facility] STATING THEY WILL NOT ACCEPT THIS PATIENT BACK ON SERVICE SHE IS NONCOMPLAINT.
[2017-10-01 17:06] VITALS: BP 95/67
[2017-10-01 21:04] VITALS: BP 123/76
--- NOTE | 2017-10-01 23:00 | NUR ---
PT PULLED RT FOREARM IV OUT CATHETER INTACT. DIFFICULTY RESITING IV. SEVERAL FAILED ATTEMPTS BETWEEN 3 NURSES. 20 G IV RESITED TO RIGHT AC BY [place]. PAIN MEDICINE GIVEN AND IV FLUIDS RESUMED. WILL CONTINUE TO MONITOR.
[2017-10-02 00:39] VITALS: BP 113/84
[2017-10-02 04:59] LABS: BASOPHILS 0.3 % (0-2); EOSINOPHILS 0.6 % (0-7); HEMATOCRIT 29.8 % (36.0-48.0); HEMOGLOBIN 9.5 g/dL (12-16); LYMPHOCYTES 37.5 % (15-50); MCH 31.3 pg (26.0-34.0); MCHC 31.9 g/dL (31.0-37.0); MEAN PLATELET VOLUME 9.3 fL (7.4-10.4); MONOCYTES 9.6 % (2-11); PLATELET COUNT 266 10x3/uL (130-400); RBC 3.04 10x6/uL (4.00-5.40); RDW 16.5 % (11.5-14.5); WBC 3.6 10x3/uL (4.8-10.8)
[2017-10-02 05:05] VITALS: BP 136/85
[2017-10-02 06:01] LABS: ALBUMIN 2.4 g/dL (3.4-5.0); ALKALINE PHOSPHATASE 133 U/L (46-116); ALT (SGPT) 83 U/L (10-68); BILIRUBIN - TOTAL 0.13 mg/dL (0.2-1.3); CALC OSMOLALITY 282 mosm/kg (275-300); CALCIUM 7.9 mg/dL (8.5-10.1); CARBON DIOXIDE 23.9 mmol/L (21.0-32.0); CHLORIDE - SERUM 112 mmol/L (98-107); CREATININE - SERUM 0.5 mg/dL (0.6-1.3); GLUCOSE 79 mg/dL (74-106); POTASSIUM - SERUM 4.2 mmol/L (3.5-5.1); SODIUM 143 mmol/L (136-145); UREA NITROGEN 9 mg/dL (7-18); eGFR NON AFRICAN AMERICAN > 90 mL/min (90-120)
--- NOTE | 2017-10-02 08:30 | NUR ---
ASSESSMENT COMPLETE. IV TO R AC PATENT. D5NS WITH 20 KCL INFUSING AT 100 CC/HR VIA PUMP. PEG TUBE CLAMPED. COMPLAINING OF ABDOMINAL PAIN. TOLERATING REGULAR DIET AT THIS TIME. DENIES ANY NEEDS AT THIS TIME.
[2017-10-02 08:33] VITALS: BP 100/68
--- NOTE | 2017-10-02 11:00 | NUR ---
NO CHANGES NOTED AT THIS TIME.
[2017-10-02] MEDS ORDERED: CARAFATE1 G/10 ML PO (11:36)
[2017-10-02] MEDS ORDERED: RANITIDINE H15 MG/ML PT (11:36)
[2017-10-02] MEDS ORDERED: Levaquin PO (11:37)
--- NOTE | 2017-10-02 13:00 | NUR ---
DISCHARGE TEACHING GIVEN TO PATIENT. SCRIPTS FOR LEVAQUIN AND NORCO GIVEN TO PATIENT. IV REMOVED. CATHETER TIP INTACT.
--- NOTE | 2017-10-02 13:16 | NUR ---
Is the patient Alert and Oriented? Yes 0 * How many steps to enter\exit or inside your home? approx 20 0 * PCP DR DONAHUE 0 * Pharmacy [facility] 0 * Preadmission Environment Home with Family 0 * ADLs Partial Dependent 0 * Partial ADLs (Assistance needed) Transfers 0 * Equipment Walker 0 * Other Equipment NONE PER PATIENT 0 * List name and contact numbers for known caregivers / representatives who currently or will assist patient after discharge: GODWIN GONZALES- [phone] 0 * Community resources currently utilized None 0 * Additional services required to return to the preadmission environment? No 0 * Can the patient safely return to the preadmission environment? Yes 0 * Has this patient been hospitalized within the prior 30 days at any hospital? No 0 Grand Total: 0
--- NOTE | 2017-10-02 13:20 | NUR ---
DC'D HOME WITH FAMILY. ESCORTED TO VEHICLE VIA WC WITH BELONGINGS.
--- NOTE | 2017-10-02 14:53 | NUR ---
LATE ENTRY 1130 DR PERALES ADVISED PATIENT WOULD BE DISCHARGED TO HOME TODAY. BALDO MET WITH THE PATIENT AT THE BEDSIDE. TWO FAMILY MEMBERS WERE PRESENT AND SLEEPING IN A CHAIR IN THE ROOM. CM ASK THE PATIENT WHETHER THE HOME HEALTH HAD CALLED HER. SHE STATED [facility] HAD SPOKEN WITH HER. SHE WAS NOT AWARE THEY WOULD NOT ACCEPT HER BACK ON SERVICE. SHE KNOWS HOW TO DO HER TUBE FEEDNGS AND CAN CHANGE HER DRESSING AROUND THE TUBE. SHE STATES SHE HAS PLENTY OF SUPPLIES AT HOME. SHE WILL HAVE [employer] FOLLOWING. SHE DOES NOT FEEL SHE WILL NEED H/H AT THIS TIME. SHE STATES THE PHYSICAL THERAPIST HAD DISCHARGED HER JUST BEFORE SHE ENTERED THE HOSPITAL PCP- DR DONAHUE PHARMACY- [facility]- HER SON WILL PROVIDE TRANSPORTATION TO HOME. DME- WALKER- HAS NO ADDITIONAL NEEDS. THE PATIENT LIVES WITH HER SON AT PRESENT. STATES SHE AND HER DAUGHTER PLAN TO RELOCATE IN THE FUTURE. SHE HAS APPROXIMATELY 20 STEPS TO CLIMB TO ENTER THE SON'S HOME. SHE ADVISED SHE PLANS TO LEAVE WITH HER FAMILY AFTER LUNCH.
== END 2017-10-02 13:20 | disposition home or self-care (01) ==
LOC: D.MS 13:22 → OBSVTIME 13:22 → UNDOADMIN 13:22 → D.MS 13:22 → EDSTATUS 15:00 → D.MS 10-02 13:20
PROVIDERS: Family Medicine; Internal Medicine Gastroenterology; ADMIT Family Medicine
PROC: 0D7A8ZZ Dilation of Jejunum, Via Natural or Artificial Opening Endoscopic (ICD-10-PCS; 2017-09-30)
PROC: 0D768ZZ Dilation of Stomach, Via Natural or Artificial Opening Endoscopic (ICD-10-PCS; principal; 2017-09-30 15:00)
DX: K91.89 Other postprocedural complications and disorders of digestive system (principal); E43 Unspecified severe protein-calorie malnutrition; Z68.1 Body mass index [BMI] 19.9 or less, adult; R18.8 Other ascites; R13.10 Dysphagia, unspecified; Y83.2 Surgical operation with anastomosis, bypass or graft as the cause of abnormal reaction of the patient, or of later complication, without mention of misadventure at the time of the procedure; K28.9 Gastrojejunal ulcer, unspecified as acute or chronic, without hemorrhage or perforation; F17.200 Nicotine dependence, unspecified, uncomplicated; E86.0 Dehydration; E87.6 Hypokalemia

== ENCOUNTER 2017-10-08 14:05 | Emergency (ER) | payer MEDICARE ==
[~2017-10-08 14:05] MED LIST changes: +AMPICILLIN TRI500 MG PO; +CARAFATE1 G/10 ML PO; +CIPRO500 MG PO; +KLOR-CON M1515 MEQ PO; +LOMOTIL TABLET1 TAB PO; +Levaquin PO; +MEGACE40 MG PO; +PEPCID AC20 MG PO; +RANITIDINE H15 MG/ML PT; +REGLAN10 MG PO
[2017-10-08 15:11] LABS: BASOPHILS 0.3 % (0-2); EOSINOPHILS 0 % (0-7); HEMATOCRIT 29.4 % (36.0-48.0); HEMOGLOBIN 9.4 g/dL (12-16); LYMPHOCYTES 28.1 % (15-50); MCH 31.2 pg (26.0-34.0); MCV 97.7 fL (80.0-100.0); MEAN PLATELET VOLUME 8.5 fL (7.4-10.4); MONOCYTES 7.3 % (2-11); NEUTROPHILS 64.3 % (40-80); PLATELET COUNT 258 10x3/uL (130-400); RBC 3.01 10x6/uL (4.00-5.40); RDW 15.7 % (11.5-14.5); WBC 3.3 10x3/uL (4.8-10.8)
[2017-10-08 15:30] LABS: ALBUMIN 2.3 g/dL (3.4-5.0); ALKALINE PHOSPHATASE 91 U/L (46-116); ALT (SGPT) 49 U/L (10-68); BILIRUBIN - TOTAL 0.13 mg/dL (0.2-1.3); CALC OSMOLALITY 279 mosm/kg (275-300); CALCIUM 7.9 mg/dL (8.5-10.1); CARBON DIOXIDE 28.7 mmol/L (21.0-32.0); CHLORIDE - SERUM 107 mmol/L (98-107); CREATININE - SERUM 0.5 mg/dL (0.6-1.3); POTASSIUM - SERUM 3.9 mmol/L (3.5-5.1); PROTEIN - SERUM 5.9 g/dL (6.4-8.2); SODIUM 140 mmol/L (136-145); UREA NITROGEN 11 mg/dL (7-18); eGFR NON AFRICAN AMERICAN > 90 mL/min (90-120)
[2017-10-08 15:31] LABS: GLUCOSE 126 mg/dL (74-106)
[2017-10-08 16:48] LABS: APPEARANCE CLEAR (CLEAR); BILIRUBIN NEGATIVE (NEGATIVE); COLOR YELLOW (YELLOW); GLUCOSE NEGATIVE (NEGATIVE); KETONE NEGATIVE (NEGATIVE); NITRITE NEGATIVE (NEGATIVE); PROTEIN NEGATIVE (NEGATIVE); UROBILINOGEN NORMAL (NORMAL)
== END 2017-10-08 17:20 | disposition home or self-care (01) ==
LOC: D.ER 14:05
PROVIDERS: Emergency Medicine
DX: R55 Syncope and collapse (principal)

== ENCOUNTER 2018-03-14 17:16 | Emergency (ER) | payer MEDICARE ==
[2018-03-14 18:49] LABS: APPEARANCE CLEAR (CLEAR); BILIRUBIN NEGATIVE (NEGATIVE); COLOR DK YELLOW (YELLOW); GLUCOSE NEGATIVE (NEGATIVE); KETONE NEGATIVE (NEGATIVE); NITRITE NEGATIVE (NEGATIVE); PROTEIN NEGATIVE (NEGATIVE); UROBILINOGEN NORMAL (NORMAL)
== END 2018-03-14 20:12 | disposition home or self-care (01) ==
LOC: D.ER 17:16
PROVIDERS: Emergency Medicine
DX: R10.9 Unspecified abdominal pain (principal); R11.0 Nausea; Z87.19 Personal history of other diseases of the digestive system